=== PATIENT | male | born 1940 | race Caucasian/White ===

== ENCOUNTER → 2017-05-02 | Outpatient (CLI) | payer MEDICARE ==
[~2017-05-02] MED LIST: AMIO200T; AMIO200T PO; CALC500T36 PO; CEFD1CAP8 PO; CHLO25TA PO; ELIQ5TAB; ELIQ5TAB PO; FLOM5CAP PO; GABA-282; GABA-282 PO; ISOS1TAB12; ISOS1TAB12 PO; LEVO150T7; LISI10TA4; LISI10TA4 PO; METF500T4; SIMV20TA2; SIMV20TA2 PO; SPIR25TA2; SPIR25TA2 PO; SYNT150T PO; TRAD5TAB PO; VITA100066 PO; VITA200015 PO
[2017-05-02 14:27] LABS: CALCIUM LEVEL 9.3 MG/DL (8.8-10.2); CREATININE FOR GFR 1.79 MG/DL (0.70-1.30); GLOMERULAR FILTRATION RATE 39.3 (>42)
[2017-05-02 14:33] LABS: POTASSIUM SERUM 5.7 MEQ/L (3.5-5.1)
== END ==
LOC: M WUC 10:36
PROVIDERS: ATTEND Internal Medicine Cardiovascular Disease
DX: I50.32 Chronic diastolic (congestive) heart failure (principal)

== ENCOUNTER → 2017-06-12 | Outpatient (CLI) | payer MEDICARE ==
[2017-06-12 13:38] LABS: ALBUMIN 3.8 GM/DL (3.2-5.2); CALCIUM LEVEL 8.7 MG/DL (8.8-10.2); CREATININE FOR GFR 3.24 MG/DL (0.70-1.30); GLOMERULAR FILTRATION RATE 19.8 (>42); MAGNESIUM LEVEL 1.8 MG/DL (1.8-2.4); PHOSPHORUS LEVEL 3.8 MG/DL (2.5-4.9); POTASSIUM SERUM 4.7 MEQ/L (3.5-5.1)
== END ==
LOC: M WUC 09:22
PROVIDERS: ATTEND Internal Medicine Cardiovascular Disease
DX: I50.32 Chronic diastolic (congestive) heart failure (principal)

== ENCOUNTER → 2017-08-01 | Outpatient (CLI) | payer MEDICARE ==
--- NOTE | 2017-08-01 11:40 | REP ---
RENAL ULTRASOUND: Real-time sonographic evaluation of the kidneys performed. The kidneys are normal in size and echotexture, right kidney measuring 11.3 x 5.1 x 4.8 cm and left kidney 11.0 x 4.9 x 5.2 cm. There is no hydronephrosis bilaterally. Vascular calcifications are seen in both kidneys without a discrete stone or mass. IMPRESSION: Essentially negative renal ultrasound. Signed by Bi Torres MD 08/04/2017 09:48 A
--- NOTE | 2017-08-01 13:25 | REP ---
URINARY BLADDER ULTRASOUND: Real-time sonographic evaluation of the urinary bladder performed. Patient attempted to fill the bladder for an extensive period of time but the bladder is not optimally distended, measuring 6.7 x 7.0 x 3.8 cm for a total volume of 116 mL. There appears to be a fold in the dome of the bladder. There is no definite bladder mass. No bladder calculus is seen. There are bilateral ureteral jets in the urinary bladder with Doppler color evaluation. Post void residual is 25 mL which is 22% of the original volume. The prostate appears enlarged measuring 5.0 x 6.0 x 3.9 cm. IMPRESSION: Suboptimal distention due to extensive attempts to fill the urinary bladder optimally. There appears to be a fold in the bladder wall superiorly. No gross bladder mass. Enlarged prostate. Signed by Bi Torres MD 08/04/2017 09:51 A
== END ==
LOC: M RAD 10:40
PROVIDERS: ATTEND Internal Medicine Nephrology
DX: N18.3 Chronic kidney disease, stage 3 (moderate) (principal); N17.9 Acute kidney failure, unspecified; E11.22 Type 2 diabetes mellitus with diabetic chronic kidney disease

== ENCOUNTER → 2018-06-26 | Outpatient (REF) | payer MEDICARE ==
[2018-06-26 18:57] LABS: APPEARANCE, URINE CLEAR (CLEAR); BACTERIA, URINE AUTO NEGATIVE (NEGATIVE); BILIRUBIN, URINE AUTO NEGATIVE (NEGATIVE); BLOOD, URINE BLOOD NEGATIVE (NEGATIVE); COLOR, URINE YELLOW (YELLOW); GLUCOSE, URINE (UA) AUTO NEGATIVE (NEGATIVE); KETONE, URINE AUTO NEGATIVE (NEGATIVE); LEUKOCYTE ESTERASE, URINE AUTO 1+ (NEGATIVE); NITRITE, URINE AUTO NEGATIVE (NEGATIVE); PROTEIN, URINE AUTO NEGATIVE (NEGATIVE); RBC, URINE AUTO 1 /HPF (0-3); SPECIFIC GRAVITY URINE AUTO 1.016 (1.002-1.035); SQUAMOUS EPITHELIAL CELL UR AU 0 /HPF (0-6); UROBILINOGEN, URINE AUTO 0.2 mg/dL (0.0-2.0); WBC, URINE AUTO 13 /HPF (0-3)
== END ==
LOC: M SMT 17:02
DX: R39.12 Poor urinary stream (principal)
CPT/HCPCS: 81001

== ENCOUNTER → 2018-08-06 | Outpatient (CLI) | payer MEDICARE ==
[2018-08-06 12:30] LABS: APPEARANCE, URINE HAZY (CLEAR); BACTERIA, URINE AUTO 1+ (NEGATIVE); BILIRUBIN, URINE AUTO NEGATIVE (NEGATIVE); BLOOD, URINE BLOOD NEGATIVE (NEGATIVE); COLOR, URINE YELLOW (YELLOW); GLUCOSE, URINE (UA) AUTO NEGATIVE (NEGATIVE); KETONE, URINE AUTO NEGATIVE (NEGATIVE); LEUKOCYTE ESTERASE, URINE AUTO 3+ (NEGATIVE); MUCUS, URINE SMALL (NEGATIVE); NITRITE, URINE AUTO NEGATIVE (NEGATIVE); PROTEIN, URINE AUTO NEGATIVE (NEGATIVE); RBC, URINE AUTO 1 /HPF (0-3); SQUAMOUS EPITHELIAL CELL UR AU 0 /HPF (0-6); UROBILINOGEN, URINE AUTO 0.2 mg/dL (0.0-2.0); WBC, URINE AUTO 114 /HPF (0-3)
[2018-08-06 13:42] LABS: ANION GAP 10 MEQ/L (8-16); BLOOD UREA NITROGEN 36 MG/DL (7-18); CARBON DIOXIDE LEVEL 22 MEQ/L (21-32); CHLORIDE LEVEL 108 MEQ/L (98-107); CREATININE FOR GFR 2.47 MG/DL (0.70-1.30); GLUCOSE, FASTING 93 MG/DL (70-100); POTASSIUM SERUM 4.8 MEQ/L (3.5-5.1); SODIUM LEVEL 140 MEQ/L (136-145)
[2018-08-06 13:48] LABS: HEMATOCRIT 43.1 % (42.0-52.0); HEMOGLOBIN 13.4 g/dl (13.5-17.5); MEAN CORPUSCULAR HGB CONC 31.1 g/dl (32.0-36.5); PLATELET COUNT, AUTOMATED 260 10^3/uL (150-450); RED BLOOD COUNT 4.79 10^6/uL (4.30-6.10); RED CELL DISTRIBUTION WIDTH 13.9 % (11.5-14.5); WHITE BLOOD COUNT 8.7 10^3/uL (4.0-10.0)
[2018-08-06 13:54] LABS: PROTHROMBIN TIME 15.4 SECONDS (12.1-14.4)
[2018-08-06 13:55] LABS: PARTIAL THROMBOPLASTIN TIME 31.6 SECONDS (25.4-37.6)
== END ==
LOC: M SMT 08:52
DX: Z01.818 Encounter for other preprocedural examination (principal); N35.919 Unspecified urethral stricture, male, unspecified site; Z79.899 Other long term (current) drug therapy
CPT/HCPCS: 80048

== ENCOUNTER 2018-08-14 11:19 | Day surgery (SDC) | payer MEDICARE ==
[~2018-08-14] VITALS: Ht 170.2 cm; Wt 88.4 kg
[~2018-08-14 11:19] MED LIST changes: +FLOM0.4C39 PO; -FLOM5CAP PO; -GABA-282; -GABA-282 PO; +GABA-843; +GABA-843 PO; +SPIR-10; +SPIR-10 PO; -SPIR25TA2; -SPIR25TA2 PO
[2018-08-14] MEDS ORDERED: LIDOCAINE 1% MDV 20ML VIAL SQ PRN (11:30)
[2018-08-14] MEDS ORDERED: LR 1,000 ML IV SCH (11:30)
[2018-08-14] MEDS ORDERED: BUPIVACAINE HCL 0.25% 30 ML VIAL As Ordered ONE (12:54)
[2018-08-14] MEDS ORDERED: LIDOCAINE 1% SDV INJ 30 ML VIAL As Ordered ONE (12:54)
[2018-08-14] MEDS ORDERED: BACITRACIN OINT 30GM As Ordered ONE (12:54)
[2018-08-14] MEDS ORDERED: ROCURONIUM BROMIDE 50 MG/5 ML VIAL As Ordered ONE (12:57)
[2018-08-14] MEDS ORDERED: LIDOCAINE 2% INJ 100 MG/5 ML SDV (FOR ANES.) As Ordered ONE (12:57)
[2018-08-14] MEDS ORDERED: dexameTHASONE 4 MG/ML 1ML VIAL (J1100) As Ordered ONE (12:57)
[2018-08-14] MEDS ORDERED: PROPOFOL 200 MG/20 ML VIAL As Ordered ONE (12:57)
[2018-08-14] MEDS ORDERED: KETOROLAC 60 MG/2 ML VIAL (J1885) As Ordered ONE (12:57)
[2018-08-14] MEDS ORDERED: ONDANSETRON 4MG/2ML VIAL (J2405) As Ordered ONE (12:57)
[2018-08-14] MEDS ORDERED: MIDAZOLAM INJ 2 MG/2 ML VIAL (J2250) As Ordered ONE (13:46)
[2018-08-14] MEDS ORDERED: ePHEDrine SULFATE 25 MG/5 ML(5MG/ML) SYRINGE As Ordered ONE (13:46)
[2018-08-14] MEDS ORDERED: fentaNYL 100 MCG/2 ML INJECTION (J3010) As Ordered ONE (13:48)
[2018-08-14] MEDS ORDERED: fentaNYL 100 MCG/2 ML INJECTION (J3010) IV PRN (15:00)
[2018-08-14] MEDS ORDERED: ACETAMINOPHEN TAB 650MG DOSE (2X325MG) PO PRN (15:00)
[2018-08-14 15:28] VITALS: BP 140/63
--- NOTE | 2018-08-14 16:07 | RO ---
DATE OF PROCEDURE: 08/14/2018 PREPROCEDURE DIAGNOSIS: Meatal stenosis. POSTPROCEDURE DIAGNOSIS: Meatal stenosis. PROCEDURE: Meatal dilation, cystoscopy. SURGEON: Chema Stewart MD AEROSPACE ENGINEER OFFICER ARMAMENT: None. ANESTHESIA: General anesthesia. OPERATIVE INDICATIONS: This is a 78-year-old male with meatal stenosis and obstructive urinary symptoms. She was brought to the operating room today for the above listed procedure. DESCRIPTION OF PROCEDURE: The patient was brought to the operating room where general anesthesia was induced. Prophylactic antibiotics were infused. He was then placed in supine position and prepped and draped in the usual sterile fashion. At this point, I utilized a hemostat to spread the urethral meatus with a plan to compress the tissue. When I did this, the urethral meatus quickly opened up to a normal size urethral meatus indicating that his problem not be due to a stricture but due to adhesions. Since this opened up so easily, I decided not to do a meatotomy. A flexible cystoscopy was then performed and was negative for any bladder or urethral masses. There was bilobar prostatic hyperplasia with mild occlusion of the bladder neck. The remainder of the urethra appeared unremarkable. The bladder was then emptied of all fluids and this marked conclusion of the procedure. The patient was then awakened from anesthesia and transported to the recovery room in stable condition. Estimated blood loss was 1 mL. Complications: None. Specimens. None. Plan: The patient will followup in the clinic in a few weeks for a postoperative visit and a postvoid residual to see if he is voiding better.
== END 2018-08-14 16:25 | disposition home or self-care (01) ==
LOC: M SDC 11:19
PROVIDERS: ATTEND Urology
DX: N35.911 Unspecified urethral stricture, male, meatal (principal); I25.10 Atherosclerotic heart disease of native coronary artery without angina pectoris; E11.9 Type 2 diabetes mellitus without complications; G47.30 Sleep apnea, unspecified; I10 Essential (primary) hypertension; E78.5 Hyperlipidemia, unspecified; E03.9 Hypothyroidism, unspecified; F41.9 Anxiety disorder, unspecified; Z79.01 Long term (current) use of anticoagulants; Z79.899 Other long term (current) drug therapy
CPT/HCPCS: 52281; J0690; J2250; J3010

== ENCOUNTER → 2019-02-05 | Outpatient (CLI) | payer MEDICARE ==
[~2019-02-05] MED LIST changes: +CALC12504 PO; -CALC500T36 PO
--- NOTE | 2019-02-05 18:33 | REP ---
Chest x-ray: Two views. History: Shortness of breath. Comparison study: August 06, 2018. August 11, 2017 study is also reviewed. There is a granulomatous nodule in the right lateral pleural angle measuring 1.4 cm in greatest diameter. This is unchanged from CT study of the abdomen films dated August 11, 2017. It is consistent with a benign granuloma. Remaining lung alfaro are clear. Pleural angles are sharp. There are degenerative changes in the thoracic spine. Heart is not enlarged. The aorta is calcific. Impression: No active disease. Electronically Signed by Micha Live MD 02/06/2019 08:51 A
== END ==
LOC: M RAD 14:46
PROVIDERS: ATTEND Physician Assistant
DX: R91.8 Other nonspecific abnormal finding of lung field (principal)

== ENCOUNTER → 2019-05-26 | Outpatient (CLI) | payer MEDICARE ==
[~2019-05-26] MED LIST changes: -CALC12504 PO; +CALC500T61 PO
--- NOTE | 2019-05-26 19:55 | REP ---
Urinary tract sonography: History: Chronic kidney disease, stage IV. Findings: Renal cortical echogenicity pattern is increased bilaterally. There is moderate right-sided hydronephrosis. Emptying ureteral jet is observed from the left ureter in the lumen of the bladder, but not from the right. Obstructive uropathy on the right must be suspected. The right kidney measures 11.6 x 6.7 x 5.7 cm. Left renal dimensions are 10.4 x 5.0 x 5.9 cm. No hydronephrosis is seen on the left. No mass or cyst is observed. Impression: Increased renal cortical echogenicity seen. Moderate right-sided hydronephrosis. Suspect obstructive uropathy on the right side. Absence of emptying ureteral jet on the right on color Doppler interrogation of the bladder. Electronically Signed by Micha Live MD 05/26/2019 09:16 P
== END ==
LOC: M RAD 12:32
PROVIDERS: ATTEND Internal Medicine Nephrology
DX: N18.4 Chronic kidney disease, stage 4 (severe) (principal); R94.4 Abnormal results of kidney function studies; N13.30 Unspecified hydronephrosis

== ENCOUNTER → 2019-06-08 | Outpatient (REF) | payer MEDICARE ==
[2019-06-09 13:36] LABS: APPEARANCE, URINE CLEAR (CLEAR); BACTERIA, URINE AUTO NEGATIVE (NEGATIVE); BILIRUBIN, URINE AUTO NEGATIVE (NEGATIVE); BLOOD, URINE BLOOD 2+ (NEGATIVE); COLOR, URINE YELLOW (YELLOW); GLUCOSE, URINE (UA) AUTO NEGATIVE (NEGATIVE); KETONE, URINE AUTO NEGATIVE (NEGATIVE); LEUKOCYTE ESTERASE, URINE AUTO NEGATIVE (NEGATIVE); MUCUS, URINE SMALL (NEGATIVE); NITRITE, URINE AUTO NEGATIVE (NEGATIVE); PROTEIN, URINE AUTO NEGATIVE (NEGATIVE); RBC, URINE AUTO 1 /HPF (0-3); SPECIFIC GRAVITY URINE AUTO 1.008 (1.002-1.035); SQUAMOUS EPITHELIAL CELL UR AU 0 /HPF (0-6); UROBILINOGEN, URINE AUTO 0.2 mg/dL (0.0-2.0); WBC, URINE AUTO 0 /HPF (0-3)
== END ==
LOC: M SMT 13:01
PROVIDERS: ATTEND Nurse Practitioner Family
DX: R30.0 Dysuria (principal)

== ENCOUNTER → 2019-06-16 | Outpatient (CLI) | payer MEDICARE ==
[~2019-06-16] MED LIST changes: +METF-791; -METF500T4; -SIMV20TA2; -SIMV20TA2 PO; +SIMV20TA22; +SIMV20TA22 PO
--- NOTE | 2019-06-16 14:26 | REP ---
CT abdomen and pelvis without IV or oral contrast: History: Hydronephrosis. Comparison CT study August 11, 2017. Comparison sonography May 26, 2019. The recent sonography shows moderate right-sided hydronephrosis. CT findings: There are multiple bibasilar pulmonary nodules. Some of these are calcified and many are noncalcified. There are several bilaterally which appear to be new from the August 11, 2017 study. The largest of these is a partially centrally calcified granuloma in the right lower lobe measuring 14 mm in greatest diameter. No pleural effusion is seen. There is a granulomatous calcification in the spleen. There are multiple stable hepatic cysts. No hepatic mass lesion is seen. No adrenal lesion is observed. The pancreas is unremarkable. No abnormalities noted in the gallbladder. Moderate right-sided hydronephrosis and hydroureter are confirmed. The redundant dilated ureter is traced into the pelvis all the way to the ureterovesical junction. There is a Walter catheter in the urinary bladder. The prostate gland is markedly enlarged and heterogeneously nodular in contour. The prostate gland has enlarged considerably since the August 01, 2017 study measuring 8.8 cm in AP dimension today compared to 5.0 cm previously. Seminal vesicles appear to be enlarged and nodular. No left-sided hydronephrosis is seen. Vascular calcification is noted. No abdominal wall defect is seen. Bone window settings show areas of sclerosis in the right iliac bone anteriorly and posteriorly, the L5 vertebral body, the L3 vertebral body along its right lateral margin, the L1 vertebral body posteriorly, T12, T9. These are consistent with sclerotic metastases. Small and large intestinal bowel loops are unremarkable. No pelvic adenopathy or retroperitoneal adenopathy is observed. Impression: Marked enlargement of prostate with nodular heterogeneous in texture suggestive of prostate malignancy. There is moderate hydronephrosis affecting the right kidney. 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 There are calcified and noncalcified pulmonary nodules, which are new in the lung bases. Walter catheter is noted in place. Electronically Signed by Micha Live MD 06/16/2019 02:19 P
== END ==
LOC: M RAD 13:45
PROVIDERS: ATTEND Nurse Practitioner Family
DX: N13.30 Unspecified hydronephrosis (principal); R91.8 Other nonspecific abnormal finding of lung field; D73.89 Other diseases of spleen; N40.0 Benign prostatic hyperplasia without lower urinary tract symptoms; K76.89 Other specified diseases of liver

== ENCOUNTER → 2019-06-17 | Outpatient (CLI) | payer MEDICARE ==
[~2019-06-17] MED LIST changes: +SIMV20TA2; +SIMV20TA2 PO; -SIMV20TA22; -SIMV20TA22 PO
== END ==
LOC: M SMT 15:46
PROVIDERS: ATTEND Nurse Practitioner Family
DX: Z12.5 Encounter for screening for malignant neoplasm of prostate (principal)
CPT/HCPCS: 36415; 51700; G0103; G0463

== ENCOUNTER → 2019-07-13 | Outpatient (CLI) | payer MEDICARE ==
[2019-07-13 11:38] LABS: APPEARANCE, URINE CLOUDY (CLEAR); BACTERIA, URINE AUTO 1+ (NEGATIVE); BILIRUBIN, URINE AUTO NEGATIVE (NEGATIVE); BLOOD, URINE BLOOD 3+ (NEGATIVE); COLOR, URINE YELLOW (YELLOW); GLUCOSE, URINE (UA) AUTO NEGATIVE (NEGATIVE); KETONE, URINE AUTO NEGATIVE (NEGATIVE); LEUKOCYTE ESTERASE, URINE AUTO 3+ (NEGATIVE); NITRITE, URINE AUTO NEGATIVE (NEGATIVE); PROTEIN, URINE AUTO 1+ mg/dL (NEGATIVE); RBC, URINE AUTO TNTC /HPF (0-3); SPECIFIC GRAVITY URINE AUTO 1.014 (1.002-1.035); SQUAMOUS EPITHELIAL CELL UR AU 0 /HPF (0-6); UROBILINOGEN, URINE AUTO 0.2 mg/dL (0.0-2.0); WBC, URINE AUTO TNTC /HPF (0-3)
[2019-07-13 11:58] LABS: HEMATOCRIT 36.9 % (42.0-52.0); HEMOGLOBIN 11.6 g/dl (13.5-17.5); MEAN CORPUSCULAR HEMOGLOBIN 27.4 pg (27.0-33.0); MEAN CORPUSCULAR HGB CONC 31.4 g/dl (32.0-36.5); PLATELET COUNT, AUTOMATED 338 10^3/uL (150-450); RED BLOOD COUNT 4.24 10^6/uL (4.30-6.10)
[2019-07-13 12:08] LABS: INR 1.41
[2019-07-13 12:09] LABS: PARTIAL THROMBOPLASTIN TIME 32.8 SECONDS (25.0-38.4)
[2019-07-13 12:31] LABS: CALCIUM LEVEL 8.8 MG/DL (8.8-10.2); CREATININE FOR GFR 2.91 MG/DL (0.70-1.30); GLOMERULAR FILTRATION RATE 22.3 (>35); POTASSIUM SERUM 4.4 MEQ/L (3.5-5.1)
--- NOTE | 2019-07-13 13:26 | REP ---
REASON: Preoperative evaluation. COMPARISON: Multiple, latest 02/05/2019. Older priors were reviewed. There is an unchanged nodule in the right lung lower lobe stable from at least 08/11/2017. An unchanged tiny nodule is also seen in the left mid-lung zone as well. There is no significant change in the appearance of the lung alfaro. No acute patchy parenchymal opacities or pleural effusions have developed. The heart is not enlarged. The osseous structures are unchanged. Chronic small degenerative changes noted status quo. IMPRESSION: No evidence of acute disease. Findings as described above. Electronically Signed by Dong Alexandre DO 07/13/2019 02:38 P
== END ==
LOC: M LAB 10:45
PROVIDERS: ATTEND Nurse Practitioner Family
DX: Z01.818 Encounter for other preprocedural examination (principal); N13.30 Unspecified hydronephrosis; R97.20 Elevated prostate specific antigen [PSA]

== ENCOUNTER 2019-07-23 05:56 | Day surgery (SDC) | payer MEDICARE ==
[~2019-07-23] VITALS: Ht 172.7 cm; Wt 81.6 kg
[~2019-07-23 05:56] MED LIST changes: -SIMV20TA2; -SIMV20TA2 PO; +SIMV20TA22; +SIMV20TA22 PO
[2019-07-23] MEDS ORDERED: LR 1,000 ML IV ONE (06:00)
[2019-07-23] MEDS ORDERED: ceFAZolin SOD 2 GM in IV 1 EA IV ONE (06:00)
[2019-07-23] MEDS ORDERED: CONRAY-60 60% 50ML VIAL (Q9961) As Ordered ONE (06:53)
[2019-07-23] MEDS ORDERED: BUPIVACAINE HCL 0.25% 30 ML VIAL As Ordered ONE (06:53)
[2019-07-23] MEDS ORDERED: LIDOCAINE 1% SDV INJ 30 ML VIAL As Ordered ONE (06:53)
[2019-07-23] MEDS ORDERED: PROPOFOL 200 MG/20 ML VIAL As Ordered ONE (07:16)
[2019-07-23] MEDS ORDERED: ONDANSETRON 4MG/2ML VIAL (J2405) As Ordered ONE (07:16)
[2019-07-23] MEDS ORDERED: LIDOCAINE 2% INJ 100 MG/5 ML SDV (FOR ANES.) As Ordered ONE (07:16)
[2019-07-23] MEDS ORDERED: fentaNYL 100 MCG/2 ML INJECTION (J3010) As Ordered ONE (07:16)
[2019-07-23] MEDS ORDERED: MIDAZOLAM INJ 2 MG/2 ML VIAL (J2250) As Ordered ONE (07:16)
[2019-07-23] MEDS ORDERED: dexameTHASONE 4 MG/ML 1ML VIAL (J1100) As Ordered ONE (07:16)
[2019-07-23] MEDS ORDERED: LIDOCAINE 2% 5ML JELLY UROJET As Ordered ONE (08:21)
[2019-07-23] MEDS ORDERED: KETOROLAC 60 MG/2 ML VIAL (J1885) As Ordered ONE (08:29)
[2019-07-23] MEDS ORDERED: ePHEDrine SULFATE 25 MG/5 ML(5MG/ML) SYRINGE As Ordered ONE (09:08)
[2019-07-23] MEDS ORDERED: oxyCODONE 5MG TAB PO PRN (09:45)
[2019-07-23] MEDS ORDERED: LR 1,000 ML IV SCH (09:45)
[2019-07-23] MEDS ORDERED: ACETAMINOPHEN TAB 650MG DOSE (2X325MG) PO PRN (09:45)
[2019-07-23] MEDS ORDERED: ONDANSETRON 4MG/2ML VIAL (J2405) IV PRN (09:45)
[2019-07-23] MEDS ORDERED: fentaNYL 100 MCG/2 ML INJECTION (J3010) IV PRN (09:45)
--- NOTE | 2019-07-23 09:47 | ROOPDOC ---
[facility] Report Of Operation Report of Operation DATE OF PROCEDURE: 07/23/19 PREPROCEDURE DIAGNOSES: Elevated Prostate Specific Antigen (PSA), Right Hydronephrosis. POSTPROCEDURE DIAGNOSES: Elevated Prostate Specific Antigen (PSA), Right Hydronephrosis. PROCEDURE: Transrectal Ultrasound-guided Prostate Biopsy, Cystoscopy, Urethral Dilation. SURGEON: Lisa Ford MD MILL WORK: None ANESTHESIA: Monitored Anesthesia Care. OPERATIVE INDICATIONS: This is an 79 year old male with an elevated PSA of 1,410, and right hydronephrosis, here today for prostate biopsy and right ureteral stent placement. DESCRIPTION OF PROCEDURE: The patient was brought to the operating room and anesthesia was administered. He was then placed in the dorsal lithotomy position and prepped and draped in the usual sterile fashion. At this point I had to dilate his urethral meatus to advance the cystoscope. It was dilated using curved metal sounds to 30Fr. I then advanced the scope in the urethra and toward the bladder. The patient of note had a very large and vascular prostate that was growing into the bladder. It bled very easily and made visualization difficult. The large prostate also made maneuvering the scope from right to left extremely difficult y. I spent about 30 minutes trying to identify the right ureteral orifice but could not do so due to bulky and friable prostate tissue growing into the bladder. I therefore aborted this portion of the procedure and withdrew the scope. The patient was then repositioned in the left lateral position. A transrectal ultrasound probe was placed into the rectum. Subsequently the ultrasonologist measured the dimensions of the prostate and the volume was 179mL. Then 12 core biopsies of the prostate were obtained using a disposable biopsy gun, 6 each from the right and 6 from the left, 2 from the base, 2 from the mid zone and 2 from the apex. There were no complications. The patient was then repositioned supine and a 20Fr coude catheter was inserted into his bladder under sterile conditions. The balloon was filled with 10mL of sterile water and the catheter was irrigated with normal saline without difficulty. The catheter was then connected to gravity drainage and this marked the conclusion of the procedure. The patient was then awakened from anesthesia and transported to the recovery room in stable condition. ESTIMATED BLOOD LOSS: Approximately 20 mL. COMPLICATIONS: None. SPECIMENS: Prostate biopsies. PLAN: The patient will follow up next week in office to discuss pathology results. I will also set him up for a right nephrostomy tube placement in IR given the inability to place a stent today. LISA FORD MD Jul 23, 2019 09:47
--- NOTE | 2019-07-23 11:03 | REP ---
TRANSRECTAL PROSTATE ULTRASOUND WITH ULTRASOUND GUIDANCE FOR PROSTATE BIOPSY: Real-time sonographic evaluation of the prostate performed utilizing transrectal probe. Prostate is markedly enlarged with lobulated contours 8.1 x 6.2 x 6.7 cm. For a total volume of 179 mL. No discreet zones of the prostate could not discerned. I suspect a large prostate mass is replacing the prostate gland and possibly invading adjacent structures. Ultrasound guidance was provided for Dr. Stewart who performed ultrasound guided biopsy of the prostate. Electronically Signed by Bi Torres MD 07/27/2019 08:46 A
[2019-07-23 12:55] VITALS: BP 168/74
== END 2019-07-23 13:05 | disposition home or self-care (01) ==
LOC: M SDC 05:56
PROVIDERS: ATTEND Urology
DX: C61 Malignant neoplasm of prostate (principal); N13.2 Hydronephrosis with renal and ureteral calculous obstruction; I25.10 Atherosclerotic heart disease of native coronary artery without angina pectoris; E11.9 Type 2 diabetes mellitus without complications; Z79.01 Long term (current) use of anticoagulants; I10 Essential (primary) hypertension; E78.5 Hyperlipidemia, unspecified; E03.9 Hypothyroidism, unspecified; Z79.899 Other long term (current) drug therapy; Z87.891 Personal history of nicotine dependence
CPT/HCPCS: 52281; 55700; 74420; 76872; 76998; C1769; G0416; J0690; J1100; J2250; J2405; J3010; Q9961

== ENCOUNTER → 2019-07-30 | Outpatient (CLI) | payer MEDICARE ==
[~2019-07-30] MED LIST changes: +ACETAMINOPHEN 325 MG TAB As Ordered ONE; +ISOVUE-300 61% 50ML VIAL (Q9967) As Ordered ONE; +LIDOCAINE 1% MDV 20ML VIAL As Ordered ONE; +MIDAZOLAM INJ 2 MG/2 ML VIAL (J2250) As Ordered ONE; +SIMV20TA2; +SIMV20TA2 PO; -SIMV20TA22; -SIMV20TA22 PO; +ceFAZolin 1GM INJ (J0690 PER 500MG) As Ordered ONE; +diphenhydrAMINE INJ 50MG/ML VIAL (J1200) As Ordered ONE; +fentaNYL 100 MCG/2 ML INJECTION (J3010) As Ordered ONE; +oxyBUTYnin 5 MG TAB PO ONE
--- NOTE | 2019-07-30 14:01 | POST-OPPD ---
Postoperative Procedure Note Date Of Procedure: Jul 30, 2019 Time Of Procedure: 14:00 PREOPERATIVE DIAGNOSIS: right hydronephrosis POSTOPERATIVE DIAGNOSIS: right hydronephrosis FINDINGS: right hydronephrosis PROCEDURE: right Neph U placement SURGEON: timoteo ANESTHESIA: mod sed ESTIMATED BLOOD LOSS: < 5 ml COMPLICATIONS: none POSTOPERATIVE CONDITION: stable JOLIE LEMON MD Jul 30, 2019 14:01
[2019-07-30 18:00] VITALS: BP 129/58
--- NOTE | 2019-08-02 11:37 | REP ---
IR Percutaneous nephro ureteral stent catheter placement using fluoroscopy and ultrasound guidance. IR nephrostogram and ureterogram. IR moderate sedation. Ultrasound of the right kidney. Clinical information: Prostate biopsy. Right-sided hydronephrosis status post prostate biopsy. Physician: Dr Mata. Procedure: The patient was advised of the benefits, risks and alternatives of the procedure and informed consent was obtained. The time-out was performed with verification of the patient's name, MRN, site of procedure and type of procedure to be performed. The patient was positioned in the prone position on the angiographic table. The site was prepped and draped in the usual sterile fashion. Moderate sedation was performed by the physician including the presence of an independent trained observer who assisted in monitoring the patient's level of consciousness and physiologic status. Following the administration of fentanyl and Versed , the physician spent 45 minutes of face to face time with the patient. A production corrugator radiograph reveals no gross abnormality. The anticipated puncture site on the flank was anesthetized with lidocaine. Using ultrasound guidance, a lower pole calyx was accessed with a 21 gauge Chiba needle. A nephrostogram and ureterogram was performed demonstrating hydronephrosis, hydroureter and distal ureteral obstruction. An 018 wire was then advanced into the collecting system. The needle was then exchanged for a non vascular introducer set. A glide wire in conjunction with a glide cath was used to recanalize the [place] ureter down to the bladder using fluoro guidance. Contrast injection confirms location in the collecting system and bladder. The glidewire was exchanged for an Amplatz wire which was advanced under fluoroscopy guidance through the catheter into the bladder. The sheath and catheter were removed. A 8.5 Yi nephro ureteral stent catheter was then advanced over the wire into the bladder. The distal pigtail was formed and locked in position. A final nephrostogram ureterogram was performed confirming position of the pigtail in the bladder. No extravasation. The catheter was sutured in position with 2-0 Prolene and a sterile dressing was applied. The patient tolerated the procedure well and was returned to the PRU in stable condition. EBL: < 5 ml. Complications: None. Conclusion: 1. Nephrostogram and ureterogram demonstrate hydronephrosis, hydroureter and distal ureteral obstruction. 2. Successful right sided nephro ureteral stent catheter placement. Patient to follow up in IR in 2 weeks for internalization. Thank you for this referral. Electronically Signed by Leatha Mata MD 08/02/2019 11:35 A
== END ==
LOC: M IRPRO 12:24
PROVIDERS: ATTEND Urology
DX: N13.30 Unspecified hydronephrosis (principal); C61 Malignant neoplasm of prostate
CPT/HCPCS: 50432; 51700; 96402; 99152; 99153; C1769; C1894; C2625; G0463; J0690; J1200; J2250; J3010; J9155; Q9967